=== PATIENT | female | born 2005 | race African-American/Black ===

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

== ENCOUNTER 2023-06-16 13:34 | Emergency (ER) | payer OTHER ==
[2023-06-16 14:27] LABS: BHCG - Serum Negative (NEGATIVE); Pregs Control Background? CLEAR/WHITE (CLR/WHITE); Pregs Control Bar Appear? YES (CONTROL BAR)
== END 2023-06-16 15:26 | disposition home or self-care (01) ==
LOC: CSHERS 13:34
DX: Z32.02 Encounter for pregnancy test, result negative (principal)
CPT/HCPCS: 36415; 84703; 99282

== ENCOUNTER 2023-10-10 20:14 | Emergency (ER) | payer SELFPAY | END 2023-10-10 21:48 | disposition home or self-care (01) | LOC: CSHERS 20:14 | DX: S62.603A Fracture of unspecified phalanx of left middle finger, initial encounter for closed fracture (principal); W01.0XXA Fall on same level from slipping, tripping and stumbling without subsequent striking against object, initial encounter ==

== ENCOUNTER 2023-11-09 11:01 | Emergency (ER) | payer SELFPAY ==
[2023-11-09] MEDS ORDERED: cefTRIAXone (ROCEPHIN) 500 MG VIAL ONE (12:22)
[2023-11-09] MEDS ORDERED: Azithromycin 250 MG TAB ONE (12:22)
[2023-11-09] MEDS ORDERED: Sterile Water 10 ML ONE (12:25)
[2023-11-09 12:36] LABS: Bilirubin Neg (Negative); Blood, Urine 25 (Negative); Clarity Slightly Cloudy (Clear); Glucose, Urine (Dipstick) Normal (Negative); Ketone, Urine Negative (Negative); Leukocyte 25 (Negative); Nitrite Negative (Negative); Protein, Urine (Dipstick) 30 mg/dl (Neg-Trace); Specific Gravity, Urine 1.025 (1.005-1.030)
[2023-11-09 12:41] LABS: Pregnancy Test - Urine (BHCG) Negative (Negative); Pregu Control Background? CLEAR/WHITE (CLR/WHITE); Pregu Control Bar Appear? YES (CONTROL BAR); Specific Gravity 1.025 (1.002-1.036)
[2023-11-09 13:11] LABS: Bacteria/HPF 1+ HPF (None Seen); CAUTI Indications for Culture Dysuria,urgency,freq; RBC/HPF 0-3 HPF (0-3)
[2023-11-09 13:12] LABS: Mucous/LPF 3+ LPF (<2+); Urine Culture Reflex No No
== END 2023-11-09 13:45 | disposition home or self-care (01) ==
LOC: CSHERS 11:01
DX: O03.9 Complete or unspecified spontaneous abortion without complication (principal); O98.819 Other maternal infectious and parasitic diseases complicating pregnancy, unspecified trimester; A74.9 Chlamydial infection, unspecified; Z3A.00 Weeks of gestation of pregnancy not specified
CPT/HCPCS: 81001; 81025; 84702; 96372; J0696

== ENCOUNTER 2024-01-28 20:13 | Emergency (ER) | payer OTHER ==
[2024-01-28 20:51] LABS: #Basophils 0.03 10x3/uL (0.0-0.2); #Eosinphils 0.39 10x3/uL (0.0-0.5); #Monocytes 0.34 10x3/uL (0.0-1.1); #Neutrophils 3.06 10x3/uL (1.5-8.4); %Basophils 0.5 % (0.0-2.0); %Eosinophils 6.7 % (0.0-6.0); %Monocytes 5.9 % (0.0-10.0); %Neutrophils 52.7 % (40.0-75.0); Hematocrit 26.9 % (34.9-44.5); Hemoglobin 9.3 g/dL (12.0-15.5); Mean Corpuscular HGB CONC 34.6 g/dL (32.0-36.0); Mean Corpuscular Hemoglobin 24.7 pg (27.0-33.0); Mean Corpuscular Volume 71.5 fL (81.6-98.3); Mean Platelet Volume 9.8 fL (7.4-10.4); Platelet Count 281 10x3/uL (150-450); RBC Distribution Width 14.6 % (11.5-14.5); Red Blood Cell (RBC) Count 3.76 10x6/uL (3.90-5.03); White Blood Cell (WBC) Count 5.8 10x3/uL (3.5-10.5)
[2024-01-28 21:04] LABS: ALT (SGPT) 14 U/L (8-55); AST (SGOT) 26 U/L (5-34); Albumin 3.6 g/dL (3.5-5.0); Alkaline Phosphatase 57 U/L (40-100); Anion Gap 11 mmol/L (10-20); BUN (Urea Nitrogen) 12 mg/dL (7.0-18.7); Bilirubin, Total 0.2 mg/dL (0.2-1.2); Calc. Creatinine Clearance 0 mL/min (70-130); Calcium 8.7 mg/dL (7.8-10.44); Carbon Dioxide 23 mmol/L (22-29); Chloride 109 mmol/L (98-107); Estimated GFR 93; Globulin 3.4 g/dL (2.4-3.5); Glucose 108 mg/dL (70-105); Potassium 3.9 mmol/L (3.5-5.1); Sodium 139 mmol/L (136-145)
[2024-01-28 23:35] LABS: Bilirubin Neg (Negative); Blood, Urine 250 (Negative); Clarity Clear (Clear); Glucose, Urine (Dipstick) Normal (Negative); Ketone, Urine Negative (Negative); Leukocyte Negative (Negative); Nitrite Negative (Negative); Protein, Urine (Dipstick) 15 mg/dl (Neg-Trace)
[2024-01-28 23:45] LABS: Bacteria/HPF Rare-Few HPF (None Seen); CAUTI Indications for Culture Pelvic or flank pain; RBC/HPF 21-50 HPF (0-3); WBC/HPF 0-3 HPF (0-3)
[2024-01-28 23:47] LABS: Urine Culture Reflex No No
== END 2024-01-29 | disposition home or self-care (01) ==
LOC: CSHERS 20:13
DX: O26.851 Spotting complicating pregnancy, first trimester (principal); Z3A.01 Less than 8 weeks gestation of pregnancy
CPT/HCPCS: 36415; 76856; 80053; 81001; 84702; 85025; 86900; 86901

== ENCOUNTER 2024-02-04 02:12 | Emergency (ER) | payer OTHER | END 2024-02-04 03:10 | disposition home or self-care (01) | LOC: CSHERS 02:12 | DX: Z34.91 Encounter for supervision of normal pregnancy, unspecified, first trimester (principal); Z3A.01 Less than 8 weeks gestation of pregnancy | CPT/HCPCS: 36415; 84702; 99283 ==

== ENCOUNTER 2024-06-22 21:00 | Emergency (ER) | payer BC ==
[2024-06-22 21:28] LABS: Pregnancy Test - Urine (BHCG) Negative (Negative); Pregu Control Background? CLEAR/WHITE (CLR/WHITE); Pregu Control Bar Appear? YES (CONTROL BAR)
== END 2024-06-22 21:51 | disposition home or self-care (01) ==
LOC: CSHERS 21:00
DX: Z32.02 Encounter for pregnancy test, result negative (principal)
CPT/HCPCS: 81025; 99282